=== PATIENT | male | born 1995 | race Caucasian/White ===

== ENCOUNTER → 2016-07-03 | Outpatient (CLI) | payer BC, OTHER ==
[~2016-07-03] MED LIST: AMOXICILLIN500 MG PO; BACLOFEN10 MG PO; CIPRODEX 0.3%-7.5 ML OT; CLINDAMYCIN150 MG PO; DEPAKOTE125 MG PO; DESONIDE0.05% TP; DIPROLENE0.05% TP; DUONEB 3 MG/3 ML3 M1 INH; GLYCOPYRROLATE2 MG PO; LOTRISONE 0.05%1 CRE TP; MIRALAX POWDER17 G1 PO; MOTRIN CHI100 MG/51 PO; NYSTATIN100000 U/G TP; PULMICORT0.5 MG/2 M; TOPICORT0.25% TP; VALIUM2 MG PO; VITAMIN D5000 IU PO; ZOFRAN ODT4 MG PO
--- NOTE | ~2016-07-03 | PROC NOTE ---
[place], [place] PROCEDURE NOTE NAME: WERO PEREIRA UNIT #: [id number] ROOM: DOCTOR: OMERO FERRELLANN BIRTHDATE: [birth year] DOS: 07/03/2016 MODIFIED BARIUM SWALLOW DOCTOR: Dr. Gallegos. RADIOLOGIST: Dr. Silva. BACKGROUND INFORMATION: The patient is a 20-year-old male who was seen for a modified barium swallow. This test was ordered to view the anatomy and physiology of the swallowing mechanism. The patient currently attends school at [employer]. He has been displaying poor intake at school and weight loss. Therefore, this test was recommended. His mother accompanied him for the examination and provided case history information. She reported him having no difficulty at home and stated that she felt that his problems eating at school were due to distractibility as he often just watches everybody else and refuses to eat. This child receives a pureed tray at school with some soft solid snacks. He receives soft foods at home and thin liquids, which are taken by sippy cup. For today's assessment, he was alert. He was unable to follow any commands. Frequent drooling was displayed. Consistent open mouth position was displayed. He had difficulty maintaining upright posture. Physical prompts as well as assistance by the clinician, x-ray tech, and mother were provided. Oral peripheral examination was unable to be fully completed due to his inability to follow commands. He did present with natural teeth, many were missing. As previously mentioned, consistent open mouth was displayed as well as frequent drooling. Respiratory status was noted to be congested. METHODS AND MATERIALS USED FOR THE EXAMINATION: The patient was positioned in the lateral plane. His upright position was difficult to maintain. Physical prompts were needed throughout the study to ensure proper positioning, so that his swallow could be adequately viewed. The patient was presented with a variety of consistencies including pudding mixed with barium, barium coated banana, and Goldfish crackers. He was also administered nectar thick pop and honey thick barium. Mom had been instructed to bring favorite foods from home so that he would be better able to cooperate. Feeding was also attempted in the same manner that mom uses at home. For a portion of this session, mom fed the patient due to his frequent movements, which made viewing difficult. ORAL PHASE: The oral phase of the swallow was represented by a moderate dysfunction. Poor labial closure and seal was noted. He displayed anterior loss of a portion of all items given. Bolus formation was impaired mildly with puree and thick liquids and moderately with soft solid. Soft solid consistencies were placed on the back left tooth to better improve mastication and propulsion as recommended by mom, stating that this is the method she uses at home successfully with him. Oral transit was mildly impaired with puree and liquids and moderately impaired with soft solid. Tongue to palate contact was adequate with all consistencies. Tongue to posterior pharyngeal wall contact was mild to moderately impaired. Velar functioning was within normal limits with no nasal regurgitation. [place], [place] PROCEDURE NOTE NAME: WERO PEREIRA UNIT #: [id number] ROOM: DOCTOR: JERMAIN FERRELL BIRTHDATE: [birth year] PHARYNGEAL PHASE: Swallow initiation time of all consistencies was grossly within normal limits. His overall swallow was weak and with impaired pharyngeal squeeze. Residue in the vallecula did occur. Penetration occurred during the swallow with nectar thick liquid. Due to this, a thin liquid was not administered. No penetration or aspiration occurred with any other consistency. IMPRESSIONS AND RECOMMENDATIONS: Based upon assessment results, this patient exhibited a moderate oropharyngeal dysphagia. He displayed moderately impaired oral transit and mastication with soft solids and mildly impaired transit of puree and thick liquids. Tongue to posterior pharyngeal wall contact was mild to moderately impaired with resultant residue in the vallecula. Poor pharyngeal squeeze and weak swallow were displayed. Penetration of nectar thick liquid during the swallow was observed. Thin liquid was not attempted due to high aspiration risk. No penetration or aspiration was observed with honey thick liquid. The patient currently receives puree and soft foods as well as thin liquids. Mom reported no recent history of pneumonia. Recommend the patient receive puree and soft foods and honey thickened liquids. Recommend implementation of the following safe swallow strategies: Minimize distractions during mealtime, upright positioning for meals with head upright, small bites and sips and allowing extra time to swallow due to slow oral propulsion. The patient is at high risk for aspiration. Recommend to closely monitor for signs and symptoms of aspiration during the meals and discontinue if signs are displayed. Also spoke with mom regarding implementation of Jones water protocol to prevent dehydration as he will be receiving thick liquids. She was educated on all recommendations and verbalized understanding. A written copy of recommendations was also provided for education of classroom personnel. Thank you very much for this referral. Should you have any questions regarding this patient, please contact the speech pathologist at [phone]. JERMAIN FERRELL CM:PROCNOTE:PROCEDURE NOTE 1020 [id number] JERMAIN FERRELL
--- NOTE | ~2016-07-03 | SLPIE ---
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 EVALUATION NAME: WERO PEREIRA UNIT #: [id number] ROOM: DOCTOR: EMILY TRENT MD Speech Language Pathology Initial Evaluation Page 1 1 of Patient Name: WERO PEREIRA Date: 07/03/2016 01:04 PM : 1995 SOC Date: 07/03/2016 Provider: [facility] Provider #: [id number] Treating Clinician: GENE Zuluaga Referring Physician: EMILY TRENT Patient Information Address: [address] Physician: EMILY TRENT Physician #: City, [facility], Zip: [place], [place] [address] Occupation: Unknown # of Approved Visits: 0 Gender: Male Administrative Personal Assistant: ANA LUISA CALY Rehabilitation Information / History Onset Date Description Code Primary Diagnosis: 07/03/2016 A000.00 DIAGNOSIS FROM INTERFACE NOT FOUND IN [facility] TABLE Subjective Comments: Initial evaluation created to initiate the electronic medical record. Please see [employer] for details. Clinical Findings Functional Goals 07/03/2016 1:05:17 PM GENE Zuluaga Date/Time State License #: [id number] CM:MONTSE 1308 1308 [facility]
--- NOTE | ~2016-07-03 | SLPPOC ---
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 Please see [employer] for details. Initial Level Goals 07/03/2016 1:05:17 PM EMILY TRENT Date/Time GENE Zuluaga Date I certify the need for these services furnished under this plan of treatment while under my care. State License #: [id number] CM:SLPPOC 1308 1308 [facility] TH[facility]
--- NOTE | ~2016-07-03 | SLPPN ---
[place], [place] BANJO REPAIRER PROGRESS NOTE NAME: WERO PEREIRA UNIT #: [id number] ROOM: DOCTOR: MILEY EWING,EMILY Bentley Speech Language Pathology Treatment Note Page 1 1 of Patient Name: WERO PEREIRA Date: 07/03/2016 01:05 PM : 1995 SOC Date: 07/03/2016 Provider: [facility] Provider #: [id number] Treating Clinician: LIBRA Zuluaga-BANJO REPAIRER Referring Physician: EMILY TRENT Onset Date Description Code Primary Diagnosis: 07/03/2016 A000.00 DIAGNOSIS FROM INTERFACE NOT FOUND IN [facility] TABLE Time In: 11:30 AM Time Out: 12:30 PM BANJO REPAIRER Interventions and CPT Codes Consisted of: CPT Code Modifiers Minutes Units MOTION FLUOROSCOPY/SWALLOW 31894 60 1 Total Minutes: 60 Total Timed Minutes: 0 Total Untimed Minutes: 60 Total Units: 1 Total Timed Units: 0 Total Untimed Units: 1 07/03/2016 1:06:09 PM LIBRA Zuluaga-BANJO REPAIRER Date/Time State License #: [id number] CM:JAD 1308 1308 IS THERAP[facility]
== END | disposition home or self-care (01) ==
LOC: RAD/SH 10:56
DX: R63.4 Abnormal weight loss (principal)

== ENCOUNTER → 2016-12-23 | Outpatient (CLI) | payer BC, OTHER ==
[2016-12-23 10:47] LABS: HEMATOCRIT 49.6 % (42.0-52.0); HEMOGLOBIN 16.7 g/dl (14.0-18.0); MEAN CELL VOLUME 93.8 fl (80.0-94.0); MEAN CORPUSCULAR HGB 31.6 pg (27.0-31.0); MEAN CORPUSCULAR HGB CONC 33.7 g/dl (33.0-37.0); RED BLOOD COUNT 5.29 10*6/uL (4.50-5.90); RED CELL DISTRI WIDTH 13.8 % (0-14.5); WHITE BLOOD COUNT 8.6 10*3/uL (4.8-10.8)
[2016-12-23 10:58] LABS: ALKALINE PHOSPHATASE 138 U/L (45-117); BILIRUBIN, TOTAL 0.8 mg/dl (0.2-1.0); BUN 10 mg/dl (7-24); CARBON DIOXIDE 21 mmol/L (21-32); CHLORIDE 106 mmol/L (98-107); CHOLESTEROL 131 mg/dL (<200); EST GLOM FILT AFRICAN AMERICAN > 60 ml/min; GLUCOSE 82 mg/dL (65-99); HDL CHOLESTEROL 50 mg/dl (40-60); LDL CHOLESTEROL 61 mg/dL (9-159); POTASSIUM 4.3 mmol/L (3.5-5.1); SGOT/AST 24 IU/L (3-35); SGPT/ALT 29 U/L (12-78); SODIUM 139 mmol/L (136-145); TOTAL PROTEIN 9.2 gm/dL (6.4-8.2); TRIGLYCERIDES 98 mg/dl (<150); VLDL CHOLESTEROL 20 mg/dL (6-40)
== END | disposition home or self-care (01) ==
LOC: LAB 10:05
PROVIDERS: Family Medicine
DX: J98.11 Atelectasis (principal); G80.1 Spastic diplegic cerebral palsy; E55.9 Vitamin D deficiency, unspecified; E78.00 Pure hypercholesterolemia, unspecified; G40.909 Epilepsy, unspecified, not intractable, without status epilepticus; G03.9 Meningitis, unspecified

== ENCOUNTER → 2016-12-24 | Outpatient (CLI) | payer BC, OTHER ==
[2016-12-25 07:07] LABS: TOTAL PROTEIN, SERUM 7.8 g/dL (6.0-8.5)
[2016-12-25 14:07] LABS: ALBUMIN, URINE 44.4 % (.); GAMMA GLOBULIN, URINE 13.2 % (.); M-SPIKE, % Not Observed % (Not Observed); PROTEIN,TOTAL - URINE RANDOM 22.5 mg/dL (Not Estab.)
[2016-12-25 15:09] LABS: ALBUMIN 3.9 g/dL (2.9-4.4); ALPHA-1-GLOBULIN 0.3 g/dL (0.0-0.4); GAMMA GLOBULIN 1.7 g/dL (0.4-1.8); GLOBULIN, TOTAL 3.9 g/dL (2.2-3.9); M-SPIKE Not Observed g/dL (Not Observed)
== END | disposition home or self-care (01) ==
LOC: LAB 10:24
PROVIDERS: Family Medicine
DX: E88.09 Other disorders of plasma-protein metabolism, not elsewhere classified (principal)

== ENCOUNTER → 2017-08-08 | Day surgery (SDC) | payer BC, OTHER ==
[~2017-08-08] VITALS: Wt 47.6 kg
[~2017-08-08] MED LIST changes: +VENTOLIN 02.5 MG/3 M INH; -VITAMIN D5000 IU PO; +VITAMIN D5000 UNIT PO
--- NOTE | ~2017-08-08 | O ---
[place], [place] OPERATIVE NOTE NAME: WERO PEREIRA UNIT #: [id number] ROOM: DOCTOR: JOHNNY ALCAZAR DMD BIRTHDATE: [birth year] DOS: 08/08/2017 PREOPERATIVE DIAGNOSES: Acute stress reaction with multiple dental caries, history of autism and cerebral palsy. POSTOPERATIVE DIAGNOSES: Acute stress reaction with multiple dental caries, history of autism and cerebral palsy. ANESTHESIA: General with a nasotracheal intubation. SURGEON: Johnny Alcazar DMD. PROCEDURE: COR, complete oral rehabilitation. DESCRIPTION OF PROCEDURE: After the patient was evaluated and deemed appropriate for surgery, the patient was taken to the OR and prepared and draped in usual manner. After adequate anesthesia was obtained, a moist throat pack was placed in the posterior oropharyngeal area. At this time, the patient underwent multiple dental procedures, which consisted of following: Examination, a prophylaxis, a fluoride treatment and x-rays x 4. Tooth #7, 8 and tooth I were each extracted, each receiving one 4.0 chromic suture in the extraction site after hemostasis was obtained. This was the termination of the dental procedures. At this time, the oral cavity was copiously irrigated and suctioned dry. The moist throat pack was removed. The patient was then extubated and taken to the postanesthetic recovery room in satisfactory condition. ESTIMATED BLOOD LOSS: Minimal. JOHNNY ALCAZAR DMD CM:OPRECORD:OPERATIVE NOTE 1303 1320 JOHNNY ALCAZAR DMD 08/08/17 1317 interface
[2017-08-08 10:30] VITALS: BP 116/64
[2017-08-08 12:40] VITALS: BP 116/82
[2017-08-08 12:55] VITALS: BP 127/83
[2017-08-08 13:10] VITALS: BP 120/80
[2017-08-08 13:24] VITALS: BP 112/85
[2017-08-08 13:36] VITALS: BP 124/94
== END ==
LOC: SDC 08-05 10:15
DX: K02.9 Dental caries, unspecified (principal); F43.0 Acute stress reaction; F84.0 Autistic disorder; Z88.8 Allergy status to other drugs, medicaments and biological substances

== ENCOUNTER → 2021-08-24 | Outpatient (CLI) | payer OTHER ==
[2021-08-24 16:35] LABS: HEMATOCRIT 49.3 % (42.0-52.0); MEAN CELL VOLUME 90.8 fl (80.0-94.0); MEAN CORPUSCULAR HGB 29.7 pg (27.0-31.0); MEAN CORPUSCULAR HGB CONC 32.7 g/dl (33.0-37.0); MEAN PLATELET VOLUME 11.6 fl (9.6-12.3); RED BLOOD COUNT 5.43 10*6/uL (4.50-5.90); RED CELL DISTRI WIDTH 14.5 % (0-14.5); WHITE BLOOD COUNT 12.4 10*3/uL (4.8-10.8)
[2021-08-24 16:52] LABS: BUN 18 mg/dl (7-24); CHLORIDE 103 mmol/L (98-107); CHOLESTEROL 149 mg/dL (<200); POTASSIUM 3.9 mmol/L (3.5-5.1); SGOT/AST 20 IU/L (3-35); SGPT/ALT 40 U/L (12-78); SODIUM 136 mmol/L (136-145); TOTAL PROTEIN 9.3 gm/dL (6.4-8.2); TRIGLYCERIDES 70 mg/dl (<150)
[2021-08-24 16:53] LABS: ALKALINE PHOSPHATASE 115 U/L (45-117); LDL CHOLESTEROL 87 mg/dL (9-159)
== END | disposition home or self-care (01) ==
LOC: LAB 15:31
PROVIDERS: ATTEND Family Medicine
DX: Z00.00 Encounter for general adult medical examination without abnormal findings (principal); R53.83 Other fatigue; Z79.899 Other long term (current) drug therapy

== ENCOUNTER → 2021-09-04 | Outpatient (CLI) | payer OTHER ==
[2021-09-05 07:06] LABS: TOTAL PROTEIN, SERUM 8.1 g/dL (6.0-8.5)
[2021-09-05 15:07] LABS: A/G RATIO 0.8 (0.7-1.7); ALBUMIN 3.7 g/dL (2.9-4.4); ALPHA-1-GLOBULIN 0.3 g/dL (0.0-0.4); ALPHA-2-GLOBULIN 1.2 g/dL (0.4-1.0); BETA GLOBULIN 1.1 g/dL (0.7-1.3); GAMMA GLOBULIN 1.8 g/dL (0.4-1.8); GLOBULIN, TOTAL 4.4 g/dL (2.2-3.9); M-SPIKE Not Observed g/dL (Not Observed)
== END | disposition home or self-care (01) ==
LOC: LAB 15:52
PROVIDERS: ATTEND Family Medicine
DX: E88.09 Other disorders of plasma-protein metabolism, not elsewhere classified (principal)

== ENCOUNTER → 2023-08-12 | Outpatient (CLI) | payer OTHER ==
[2023-08-12 14:04] LABS: HEMATOCRIT 56.3 % (42.0-52.0); MEAN CELL VOLUME 94.5 fl (80.0-94.0); MEAN CORPUSCULAR HGB 29.9 pg (27.0-31.0); MEAN CORPUSCULAR HGB CONC 31.6 g/dl (33.0-37.0); MEAN PLATELET VOLUME 10.9 fl (9.6-12.3); RED BLOOD COUNT 5.96 10*6/uL (4.50-5.90); RED CELL DISTRI WIDTH 14.3 % (0-14.5); WHITE BLOOD COUNT 16.3 10*3/uL (4.8-10.8)
[2023-08-12 14:29] LABS: ALKALINE PHOSPHATASE 137 U/L (46-116); BUN 13 mg/dl (9-23); CHLORIDE 105 mmol/L (98-107); CHOLESTEROL 147 mg/dL (<200); CPK 59 U/L (34-171); LDL CHOLESTEROL 91 mg/dL (9-159); POTASSIUM 4.5 mmol/L (3.4-5.1); SGPT/ALT 31 U/L (5-49); TOTAL PROTEIN 9.5 gm/dL (6.0-8.0); TRIGLYCERIDES 85 mg/dl (<150)
[2023-08-12 14:31] LABS: VITAMIN D, 25-HYDROXY 6.3 ng/mL (30-100)
== END | disposition home or self-care (01) ==
LOC: LAB 13:24
PROVIDERS: ATTEND Family Medicine
DX: F41.1 Generalized anxiety disorder (principal); E78.00 Pure hypercholesterolemia, unspecified; K21.9 Gastro-esophageal reflux disease without esophagitis; K59.00 Constipation, unspecified; E55.9 Vitamin D deficiency, unspecified